=== PATIENT | female | born 1955 | race Caucasian/White ===

== ENCOUNTER 2016-07-24 06:08 | Observation (INO) | payer OTHER ==
[2016-07-24] MEDS ORDERED: Aspirin Low Dose CHEW TAB* 81 MG PO ONE (06:46)
--- NOTE | 2016-07-24 06:56 | ED ---
Mario Kaminski Aidan, scribed for Pia Esparzauel on 07/24/16 at 0653 . HPI Chest Pain - HPI Summary HPI Summary: 61 y/o female presents to the ED with a complaint of acute, constant, moderate mid thoracic and chest pain that began last night AT 2200. Currently, her pain is 3/10. Associated symptoms include gas. The last time she has had similar symptoms was roughly 6 years ago. She has not had a stress test. Pt denies any dizziness, SOB, numbness, or tingling. FHx of GI problems and cardiac disorders. - History of Current Complaint Chief Complaint: EDChestPainROMI Hx Obtained From: Patient Onset/Duration: Started Hours Ago, Still Present Time of Onset: 22:00 Timing: Constant Initial Severity: Moderate Current Severity: Mild Pain Intensity: 3 - PAIN WAS REDUCED FROM A 5 Pain Scale Used: 0-10 Numeric Chest Pain Location: Diffuse Chest Pain Radiates: No Character: Dull/Aching Aggravating Factor(s): Other: - unknown Alleviating Factor(s): Other: - unknown Associated Signs and Symptoms: Positive: Other: - gas - Allergy/Home Medications Allergies/Adverse Reactions: Allergies Allergy/AdvReac Type Severity Reaction Status Date / Time Codeine Allergy See Comment Verified 07/24/16 06:17 Sulfa Antibiotics Allergy See Comment Verified 07/24/16 06:17 PMH/Surg Hx/FS Hx/Imm Hx Endocrine/Hematology History: Reports: Hx Diabetes Cardiovascular History: Reports: Other Cardiovascular Problems/Disorders - heart murmer - Cancer History Cancer Type, Location and Year: CERVICAL CA Hx Chemotherapy: No Hx Radiation Therapy: No - Surgical History Surgery Procedure, Year, and Place: HYSTERECTOMY, TONSILLECTOMY, RIGHT OOPHORECTOMY Infectious Disease History: No Infectious Disease History: Denies: Traveled Outside the [place] in Last 30 Days - Family History Known Family History: Positive: Hypertension - Social History Occupation: Employed Full-time Lives: With Family Alcohol Use: Occasionally Substance Use Type: Reports: None Smoking Status (MU): Never Smoked Tobacco Review of Systems Constitutional: Negative Eyes: Negative ENT: Negative Positive: Chest Pain. Negative: Palpitations Respiratory: Negative Positive: Other - gas. Negative: Abdominal Pain, Vomiting, Diarrhea, Nausea Genitourinary: Negative Musculoskeletal: Negative Skin: Negative Neurological: Negative Psychological: Normal All Other Systems Reviewed And Are Negative: Yes Physical Exam Triage Information Reviewed: Yes Vital Signs On Initial Exam: Initial Vitals Temp Pulse Resp BP Pulse Ox 98.5 F 80 18 147/72 97 07/24/16 06:15 07/24/16 06:15 07/24/16 06:15 07/24/16 06:15 07/24/16 06:15 Vital Signs Reviewed: Yes Appearance: Positive: Well-Appearing, No Pain Distress Skin: Positive: Warm, Skin Color Reflects Adequate Perfusion, Dry Head/Face: Positive: Normal Head/Face Inspection Eyes: Positive: EOMI, ALEXANDRE ENT: Positive: Normal ENT inspection Neck: Positive: Supple, Nontender Respiratory/Lung Sounds: Positive: Clear to Auscultation, Breath Sounds Present Cardiovascular: Positive: Normal, RRR, Pulses are Symmetrical in both Upper and Lower Extremities Abdomen Description: Positive: Other: - RUQ tenderness Bowel Sounds: Positive: Present Musculoskeletal: Positive: Normal, Strength/ROM Intact Neurological: Positive: Normal, Sensory/Motor Intact, Alert, Oriented to Person Place, Time Psychiatric: Positive: Normal, Affect/Mood Appropriate AVPU Assessment: Alert Diagnostics - Vital Signs Vital Signs Temp Pulse Resp BP Pulse Ox 07/24/16 06:15 98.5 F 80 18 147/72 97 - Laboratory Lab Statement: Any lab studies that have been ordered have been reviewed, and results considered in the medical decision making process. - EKG EKG 0641 Cardiac Rate: NL - 73 BPM EKG Rhythm: Sinus Rhythm EKG Interpretation: SINUS RHYTHM, NONSPECIFIC CHANGES Chest Pain Course/Dx - Course Course Of Treatment: 61 y/o female presents to the ED with CP. She has tenderness to the RUQ. She will be signed out to Dr. Raman for further evaluation. - Diagnoses Provider Diagnoses: Chest pain, Abdominal pain Discharge - Discharge Plan Condition: Stable Disposition: OTHER Discharge Disposition Comment: Sign out to Dr. Raman. Referrals: Ana Jimenez MD [Primary Care Provider] - The documentation as recorded by the Mario domingo Aidan accurately reflects the service I personally performed and the decisions made by Vilma montoya Emmanuel.
[2016-07-24 07:01] LABS: Hematocrit 41 % (35-47); Hemoglobin 13.6 g/dl (12.0-16.0); Mean Corpuscular HGB Conc 33 g/dl (31-36); Mean Corpuscular Hemoglobin 28 pg (27-31); Mean Corpuscular Volume 86 fL (80-97); Mean Platelet Volume 8 um3 (7.4-10.4); Red Blood Count 4.82 10^6/ul (4.0-5.4); Red Cell Distribution Width 15 % (10.5-15); White Blood Count 8.1 10^3/ul (3.5-10.8)
[2016-07-24 07:17] LABS: Albumin 4.2 g/dL (3.2-5.2); BUN/Creatinine Ratio 18.6 (8-20); Calcium 9.5 mg/dL (8.6-10.3); EGFR African American 108.7 (>60); EGFR Non-African American 84.5 (>60); Magnesium 1.8 mg/dL (1.9-2.7); Potassium 4.1 mmol/L (3.5-5.0); Total Bilirubin 0.4 mg/dL (0.2-1.0); Total Protein 7.2 g/dL (6.4-8.9)
[2016-07-24] MEDS ORDERED: Morphine INJ* 4 MG/ML 1 ML SYRINGE IV ONE (07:26)
[2016-07-24] MEDS ORDERED: Famotidine IV* 10 MG/ML 2 ML (20 mg) IV SLOW PU ONE (07:26)
[2016-07-24] MEDS ORDERED: Ondansetron INJ* 2 MG/ML VIAL IV ONE (07:26)
--- NOTE | 2016-07-24 07:52 | RAD ---
HISTORY: Chest pain COMPARISONS: April 01, 2013 VIEWS:1: Single frontal portable view of the chest at 7:05 AM FINDINGS: LINES AND TUBES: None. CARDIOMEDIASTINAL SILHOUETTE: The cardiomediastinal silhouette is normal for portable technique. PLEURA: The costophrenic angles are sharp. No pleural abnormalities are noted. LUNG PARENCHYMA: The lungs are clear. ABDOMEN: The upper abdomen is clear. There is no subphrenic gas. BONES AND SOFT TISSUES: No bone or soft tissue abnormalities are noted. IMPRESSION: NO ACTIVE CARDIOPULMONARY DISEASE.
--- NOTE | 2016-07-24 09:07 | RAD ---
HISTORY: Cholelithiasis, cholecystitis COMPARISONS: None TECHNIQUE: Multiple transverse and longitudinal ultrasound images were obtained of the right upper quadrant of the abdomen using grayscale, color Doppler, and spectral Doppler imaging. FINDINGS: LIVER: The liver is diffusely echogenic and coarse in echotexture, with decreased acoustic transmission. The liver is otherwise normal in shape, size, and contour. There is normal monophasic hepatopedal flow of the portal vein on Doppler imaging. BILIARY TREE: There is no intrahepatic or extrahepatic biliary dilatation. The common duct measures 0.3 cm. GALLBLADDER: Multiple gallstones are noted. There is no gallbladder thickening or pericholecystic fluid. Positive sonographic Garcia sign is noted. PANCREAS: The head of the pancreas is unremarkable. The tail of the pancreas is not well visualized secondary to overlying bowel gas. RIGHT KIDNEY: The right kidney is normal in shape, size, contour, and echogenicity. There is no hydronephrosis or nephrolithiasis. The right kidney measures 10.8 x 5 x 6.2 cm. AORTA AND IVC: The aorta and IVC are unremarkable. FLUID: There are no pleural effusions. There is no free fluid within the hepatorenal recess. OTHER FINDINGS: None. IMPRESSION: 1. CHOLELITHIASIS, WITH A POSITIVE SONOGRAPHIC GARCIA SIGN. THE IMAGING FEATURES ARE INDETERMINATE FOR, BUT SUGGESTIVE OF, ACUTE CHOLECYSTITIS. 2. FATTY INFILTRATION OF THE LIVER
[2016-07-24] MEDS ORDERED: fentaNYL* 50 MCG/ML 2 ML VIAL (100 MCG VIAL) IV SLOW PU ONE ×2 (10:08→13:27)
[2016-07-24] MEDS ORDERED: Morphine INJ* 4 MG/ML 1 ML SYRINGE IV PRN (13:42)
[2016-07-24] MEDS ORDERED: Acetaminophen TAB* 325 MG PO PRN (13:42)
[2016-07-24] MEDS ORDERED: Ondansetron INJ* 2 MG/ML VIAL IV PRN (13:45)
--- NOTE | 2016-07-24 13:58 | PN ---
Progress Note - Progress Note Note: Brief Surgical Admission Note: (full H&P dictated) S: 61 yo female w/ onset of upper abd/lower chest pain last pm, persisting through the night, presented to the ED this a.m. At present pain level of 6-7/10. Some nausea; no vomiting. O: afeb; VSS Heart: reg Lungs: clear Abd: soft; mild to mod tenderness RUQ w/ equivocal Muphy's sign; remainder of abd soft and nontender. Labs: nl WBC, troponin, LFTs and lipase US: + for stones and sono-Garcia's; neg for wall thickening, pericholecystic fluid, or ductal dilatation A: acute biliary colic; poss cholecystits P: discussed options w/ patient; will admit for IV hydration and pain control; look towards OR 07/25 for cholecystectomy; discussed w/ Dr. Llanes.
[2016-07-24] MEDS ORDERED: Zosyn per Pharmacy* NOTE FOLLOW UP SCH (14:00)
[2016-07-24] MEDS: D5NS 0.9% 1000 ML BAG* 1,000 ML IV SCH (14:48)
--- NOTE | 2016-07-24 16:59 | HP ---
CC: Ana Jimenez MD ADMISSION HISTORY AND PHYSICAL: DATE OF ADMISSION: 07/24/16 CHIEF COMPLAINT: Abdominal pain. HISTORY OF PRESENT ILLNESS: This is a 61-year-old female who beginning at around 10 p.m. last brendai ng noted onset of lower chest and upper abdominal discomfort associated with gassiness and bloating feeling. She also had discomfort in the right back. She had no relief from Gas-X. Pain has been p ersistent to some level continuously, but with colicky episodes peaking at around 7/10. She has had some associated nausea, but no vomiting per se. She did have some foamy regurgitation at one point . She denies fever, but has felt some chills. She has not noted any dark urine. She has not had a ny change in bowel habits. She did have a somewhat similar, but milder episode in 2013 and was josue nded that she was found to have gallstones at that time. She has had other minor symptoms in [facility], but nothing as severe. There is no known family history of gallbladder disease. PAST MEDICAL HISTORY: Endometrial cancer for which she underwent da Sherrie laparoscopic hysterectomy in 2012 in [place]. This was followed by radiation (brachytherapy). The patient is obese. PAST SURGICAL HISTORY: Hysterectomy with including left salpingo-oophorectomy. She had undergone pr ior right oophorectomy for an ectopic many years ago. She also had an interval surgery to address infertility. She is status post tonsillectomy. No reported surgical or anesthesia complica tions. CURRENT MEDICATIONS: She takes no prescription medications. She does take multivitamin on occasion and also occasional vitamins D and/or E. She uses herbal teas on occasion. She takes no over-the- counter products or inhalers on a regular basis. ALLERGIES: 1. CODEINE (vivid dreams). (She has tolerated hydrocodone in the past). 2. SULFA (flu-like symptoms). FAMILY HISTORY: Negative for anesthesia problems, bleeding or clotting disorders. SOCIAL HISTORY: The patient lives alone. 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 She denies use of t obacco. She drinks between 0 and 4 drinks per week. She denies other recreational drug use. REVIEW OF SYSTEMS: General: No recent constitutional symptoms or acute illnesses other than descri bed in the HPI. Her weight has been relatively stable. HEENT: No problems reported. Cardiovascula r: No upper chest pain. No history of cardiovascular disease. No history of hypertension or heart murmur. Respiratory: No history of asthma, chronic cough, or shortness of breath. GI: As above p er HPI. Colonoscopy done within the past year or so with apparent benign polyps removed and recomme nded followup in 5 years. No significant interval history noted. : Occasional past UTIs. No re cent problems. MOMD TEACHER: She undergoes early mammogram and somewhat less frequent breast exams, but no problems reported. Her last MOMD TEACHER exam was 6 to 8 months ago, reportedly normal. Endocrine: No diab etes or thyroid dysfunction. PHYSICAL EXAMINATION GENERAL: Well-nourished obese female in no acute distress. She appears comfortable on the stretche r. VITAL SIGNS: Height 5 feet 5 inches, weight 205 pounds. Temperature 98.5, blood pressure 108/84, p ulse 72, respirations 16, room air saturation 97%. HEENT: Pupils equal, round, and reactive. EOMs are intact. No conjunctival pallor or scleral icte olamide. Oropharynx: Mucous membranes moist. Teeth in good repair. No intraoral lesions. NECK: No lymphadenopathy, thyromegaly, or masses. LUNGS: Clear to auscultation. No rales or wheezes. HEART: Regular rate and rhythm. No murmur noted. BREASTS: Not examined. ABDOMEN: Multiple well-healed surgical scars. Bowel sounds are present. Obese, soft. Mild-to-mod erate tenderness in the mid epigastric and right upper quadrant regions with an equivocal Garcia sig n. No palpable masses or organomegaly within limits of exam. The remainder of the abdomen is soft and nontender. GENITALIA AND RECTAL: Not done. BACK: No spinous process or CVA tenderness. EXTREMITIES: No edema. NEUROLOGIC: Grossly intact. SKIN: Warm and dry. No suspicious rashes or lesions. PERTINENT LABORATORY DATA: White blood cell count 8100 with a normal differential, hemoglobin 13.5 . Chemistries were remarkable for normal electrolytes, BUN and creatinine, normal liver function te sts and lipase. Her troponin was normal. Magnesium was slightly low at 1.8. Glucose was 138. Ultr asound showed fatty liver changes and multiple gallstones with a positive sonographic Garcia sign. There is no gallbladder wall thickening, pericholecystic fluid, or ductal dilatation. IMPRESSION: Biliary colic with acute cholecystitis. PLAN: Admission for IV hydration, pain control, and antibiotics with a view towards timely laparosc opic cholecystectomy (likely 07/25/16). The patient understands plan and would like to proceed as r ecommended. DYLAN BANEGAS [id number]/[facility] #: [id number]
[2016-07-25] MEDS: D5NS 0.9% 1000 ML BAG* 1,000 ML IV SCH (01:37)
[2016-07-25] MEDS ORDERED: celeCOXIB CAP* 200 MG PO ONE (11:09)
[2016-07-25] MEDS ORDERED: Sodium Citrate/Citric Acid* 15 ML UDC PO ONE (11:09)
[2016-07-25] MEDS ORDERED: Metoclopramide TAB* 10 MG PO ONE (11:09)
[2016-07-25] MEDS ORDERED: Famotidine TAB* 20 MG PO ONE (11:09)
[2016-07-25] MEDS ORDERED: Metoclopramide TAB* 10 MG ONE (11:29)
[2016-07-25] MEDS ORDERED: Famotidine TAB* 20 MG ONE (11:29)
[2016-07-25] MEDS ORDERED: Sodium Citrate/Citric Acid* 15 ML UDC ONE (11:29)
[2016-07-25] MEDS ORDERED: celeCOXIB CAP* 100 MG ONE (11:29)
[2016-07-25] MEDS ORDERED: Bupivacaine 0.5% W/EPI SDV* 30 ML VIAL ONE (13:19)
[2016-07-25] MEDS ORDERED: fentaNYL* 50 MCG/ML 2 ML VIAL (100 MCG VIAL) ONE (13:44)
[2016-07-25] MEDS ORDERED: Atracurium* 10 MG/ML 10 ML VIAL ONE (13:45)
[2016-07-25] MEDS ORDERED: Propofol* 10 MG/ML 20 ML BTL IV PUSH ONE (14:14)
[2016-07-25] MEDS ORDERED: Lidocaine 2% PF * 5 ML VIAL ONE (14:14)
[2016-07-25] MEDS ORDERED: Dexamethasone IV* 4 MG/ML 1 ML (4 MG) ONE (14:14)
[2016-07-25] MEDS ORDERED: DiMENhydriNATE IV* 50 MG/ML VIAL IV PUSH PRN (14:23)
[2016-07-25] MEDS ORDERED: fentaNYL* 50 MCG/ML 2 ML VIAL (100 MCG VIAL) IV PRN (14:23)
[2016-07-25] MEDS ORDERED: HYDROmorphone* 1 MG/ML 1 ML SYR IV PRN (15:32)
[2016-07-25] MEDS ORDERED: oxyCODONE/Acetamin 5/325 MG* TAB PO PRN (15:40)
--- NOTE | 2016-07-25 15:46 | PN ---
Progress Note - Progress Note Note: Brief Surgical Note: Pre-op: Acute cholecystitis Post-op: Same Procedure: Laparoscopic cholecystectomy Surgeon: Dr. Llanes Real Estate Coordinator: Jessica Hughes EPL: Minimal Fluids: LR 900 cc Drains: None Catheter: None Specimen: Gallbladder Findings: See dictated op note
--- NOTE | 2016-07-26 01:30 | OP ---
CC: Ana Jimenez MD * DATE OF OPERATION: 07/25/16 - ROOM #333 DATE OF : 51 SURGEON: Dr. Llanes. SANDAL PARTS ASSEMBLER: DYLAN Malone ANESTHESIOLOGIST: Nolan Cherry MD ANESTHESIA: General endotracheal. PRE-OP DIAGNOSIS: Acute cholecystitis. POST-OP DIAGNOSIS: Acute cholecystitis. OPERATIVE PROCEDURE: Laparoscopic cholecystectomy. ESTIMATED BLOOD LOSS: Minimal. IV FLUIDS: 900 mL of crystalloids. SPECIMEN: Gallbladder contents. DRAINS: None. COMPLICATIONS: None. COUNTS: The instrument, needle, and sponge counts were correct. DESCRIPTION OF PROCEDURE: The patient was brought to the operating room and placed on the table supine. Sequential compression devices were placed on both lower extremities. General anesthesia was administered. The abdomen was prepped and draped in the usual sterile fashion. She received appropriate intravenous antibiotics and time-out was performed. Local anesthetic was infiltrated into the skin and soft tissue prior to each incision. Entry to the abdomen was through a transumbilical vertical incision accommodating a 5-mm optical trocar. After accessing the peritoneal cavity, carbon- dioxide insufflated to a pressure of 15 mmHg. A 5 mm 0-degree laparoscope was introduced. The gallbladder appeared to be acutely inflamed. The 12-mm trocar was placed in the subxiphoid position and two 5-mm trocar was placed in the right upper quadrant. The gallbladder was grasped up to the fundus and retracted superiorly. There were adhesions of omental fat to the gallbladder and this was divided using combination of blunt dissection and electrocautery. As the gall-bladder was retracted superiorly, the gallbladder was entered with cautery dissection and endoscopic suction was used to decompress the gallbladder. The cholecystotomy site was grasped and retracted superiorly and the dissection proceeded towards the infundibulum dissecting this both medially and laterally. A cystic artery was identified, was bluntly dissected out, clipped, and divided. The cystic duct was identified , bluntly dissected out, clipped, and divided. Extruded gallstones were removed using a stone retrieval forceps. The gallbladder was then freed from attachments to the liver using the hook cautery staying in an avascular plane. Any extruded stones were removed as they were identified. Ultimately, once the gallbladder was freed, it was placed in an endoscopic retrieval bag and it was retrieved through the subxiphoid port site. The area of dissection was carefully inspected for hemostasis and stones. A few oozing areas on the liver bed were cauterized. Additional branch of the cystic artery identified within the fatty tissue anterior to the gallbladder was clipped. Copious lavage was performed with 3 L of warm saline until clear. The ports were then removed under direct visualization and carbon dioxide was released. Skin incisions were closed with 4-0 Monocryl in a subcuticular fashion. Steri-Strips were applied. The patient tolerated the procedure well and was extubated and transferred to the recovery room in stable condition. [id number]/[facility] #: [id number] MTDD
--- NOTE | 2016-07-26 08:39 | PN ---
Progress Note - Progress Note SOAP: Subjective: No pain. Tolerated diet. No N/V. Answered multiple questions about post-op care. Objective: Vital Signs Temp 98.2 F 07/26/16 07:19 Pulse 66 07/26/16 07:19 Resp 15 07/26/16 07:19 BP 113/59 07/26/16 07:19 Pulse Ox 95 07/26/16 07:19 Kfjy=701 NAD Abd: obese, incisions with steristrips intact. Soft and NT. Intake & Output 07/25/16 07/26/16 07/26/16 18:59 06:59 18:59 Intake Total 3297 3583 132 Output Total 1400 2200 Balance 1897 1383 132 Intake: IV Fluids 2695 1663 132 ABX - ZOSYN 103 103 D5W NS (0.9%) 795 LR 1900 1530 NS (0.9%) 30 29 IVPB 102 ABX - ZOSYN 102 Oral 500 1920 Output: Urine 1400 2200 Assessment: POD#1 s/p lap jolene for acute cholecystitis. Overall doing well, fever not unexpected given findings, but not septic and no need for further antibiotics. Plan: OK to discharge today. RTO 1 week. Instructions on diet/activity reviewed.
[2016-07-26 12:24] VITALS: BP 133/66
--- NOTE | 2016-07-27 10:51 | PN ---
I, Tin Carter, scribed for Krystian Raman MD on 07/24/16 at 0729 . Progress Note - Progress Note Note: Sign out from Dr. Esparza pending CXR and U/S imaging. Pt is a 61 y/o F initially presenting with intermittent CP onset last night. Associated sz: abd pain. 0740: Met with pt. Pt is still having pain, rates it as 7 out of 10. Pt is obese. Gross PE shows RUQ tenderness. Pt is lying comfortably watching TV. Diagnostics: CXR IMPRESSION, read by radiologist: No active cardiopulmonary disease. ABD U/S IMPRESSION, read by radiologist: 1. CHOLELITHIASIS, WITH A POSITIVE SONOGRAPHIC ARZOLA SIGN. THE IMAGING FEATURES ARE INDETERMINATE FOR, BUT SUGGESTIVE OF, ACUTE CHOLECYSTITIS. 2. FATTY INFILTRATION OF THE LIVER Course of Treatment: Pt given morphine, pepcid and Zofran in ED. Consults: 1145: Dr Enamorado's nurse, surgery: Dr. Enamorado and his PA are in surgery for the next 4-5 hours. 1315: Dr. Dillon, surgery: Saw pt in ED, will admit pt. Assessment & Plan: SO by Dr. Esparza to check on US of RUQ and for dispostion. US results show "1. CHOLELITHIASIS, WITH A POSITIVE SONOGRAPHIC ARZOLA SIGN. THE IMAGING FEATURES ARE INDETERMINATE FOR, BUT SUGGESTIVE OF, ACUTE CHOLECYSTITIS. 2. FATTY INFILTRATION OF THE LIVER." Pt appears to have acute cholecystitis, she has continued pain. Discussed PE findings with Dr. Dillon, PA from Dr. Enamorado's office. After his assessment, pt will be admitted under Dr. Enamorado for possible cholecystectomy. Pt was given 2 doses of Fentanyl for pain. Pt continues to be hemodynamically stable and A&Ox3. Dispo: Pt condition is stable. Admit to [facility]. The documentation as recorded by the roryibEmma avila SooYoung accurately reflects the service I personally performed and the decisions made by , Krystian Raman MD.
== END 2016-07-26 13:50 | disposition home or self-care (01) ==
LOC: ED 06:08 → SSU 13:38 → INTOOBSV 07-25 15:35 → OBSVTOIN 07-25 15:35
PROVIDERS: ADMIT Surgery; ATTEND Surgery
DX: K80.12 Calculus of gallbladder with acute and chronic cholecystitis without obstruction (principal); R07.9 Chest pain, unspecified; R10.11 Right upper quadrant pain; K76.0 Fatty (change of) liver, not elsewhere classified; R11.0 Nausea; Z85.42 Personal history of malignant neoplasm of other parts of uterus; Z88.2 Allergy status to sulfonamides; Z88.5 Allergy status to narcotic agent
CPT/HCPCS: 36415; 71010; 76705; 80053; 83690; 83735; 83880; 84484; 85025; 85610; 85730; 88304; 93005; 96365; 96366; 96375; 99283; A9270-GY; G0378; J1100; J2270; J2405; J2543; J2704; J3010

== ENCOUNTER 2016-09-18 14:54 | Emergency (ER) | payer OTHER ==
[2016-09-18 15:10] VITALS: BP 157/72
--- NOTE | 2016-09-18 16:39 | UC ---
Throat Pain/Nasal Zoran HPI - HPI Summary HPI Summary: ONSET OF SORE THROAT SINCE THIS MORNING. NO FEVER. NO CONGESTION. NO COUGH. NO RASH. NO ABDOMINAL PAIN. 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 - History of Current Complaint Chief Complaint: UCRespiratory Stated Complaint: SORE THROAt Time Seen by Provider: 09/18/16 14:58 Hx Obtained From: Patient Onset/Duration: Gradual Onset, Lasting Weeks Pain Intensity: 0 Pain Scale Used: 0-10 Numeric Cough: None Associated Signs & Symptoms: Positive: Hoarseness - Epiglottits Risk Factors Epiglottis Risk Factors: Negative - Allergies/Home Medications Allergies/Adverse Reactions: Allergies Allergy/AdvReac Type Severity Reaction Status Date / Time Codeine Allergy See Comment Verified 09/18/16 15:10 Sulfa Antibiotics Allergy See Comment Verified 09/18/16 15:10 PMH/Surg Hx/FS Hx/Imm Hx Previously Healthy: Yes - Surgical History Surgical History: Yes Surgery Procedure, Year, and Place: HYSTERECTOMY, TONSILLECTOMY, RIGHT OOPHORECTOMY. lap jolene - Family History Known Family History: Positive: Hypertension - Social History Occupation: Employed Full-time Lives: With Family Alcohol Use: Occasionally Substance Use Type: None Smoking Status (MU): Never Smoked Tobacco - Immunization History Most Recent Influenza Vaccination: none Most Recent Pneumonia Vaccination: never Review of Systems Constitutional: Negative Skin: Negative Eyes: Negative ENT: Sore Throat Respiratory: Negative Cardiovascular: Negative Gastrointestinal: Negative Genitourinary: Negative Motor: Negative Neurovascular: Negative Musculoskeletal: Negative Neurological: Negative Psychological: Negative All Other Systems Reviewed And Are Negative: Yes Physical Exam Triage Information Reviewed: Yes Appearance: Well-Appearing, No Pain Distress, Well-Nourished Vital Signs: Initial Vital Signs Temp 97.7 F 09/18/16 15:07 Pulse 95 09/18/16 15:07 Resp 20 09/18/16 15:07 BP 157/72 09/18/16 15:07 Pulse Ox 97 09/18/16 15:07 Vital Signs Reviewed: Yes Eye Exam: Normal ENT: Positive: Hearing grossly normal, Pharyngeal erythema, TMs normal. Negative: Tonsillar swelling, Tonsillar exudate Dental Exam: Normal Neck exam: Normal Neck: Positive: Supple, Nontender, No Lymphadenopathy Respiratory Exam: Normal Respiratory: Positive: Chest non-tender, Lungs clear, Normal breath sounds, No respiratory distress, No accessory muscle use Cardiovascular Exam: Normal Cardiovascular: Positive: RRR, No Murmur, Pulses Normal Abdominal Exam: Normal Abdomen Description: Positive: Nontender, No Organomegaly Musculoskeletal Exam: Normal Musculoskeletal: Positive: Strength Intact, ROM Intact Neurological Exam: Normal Psychological Exam: Normal Psychological: Positive: Normal Response To Family Skin Exam: Normal Throat Pain/Nasal Course/Dx - Differential Dx/Diagnosis Differential Diagnosis/HQI/PQRI: Pharyngitis, Tonsillitis, URI Provider Diagnoses: PHARYNGITIS Discharge - Discharge Plan Condition: Stable Disposition: HOME Patient Education Materials: Pharyngitis (ED) Referrals: Ana Jimenez MD [Primary Care Provider] -
== END 2016-09-18 15:51 | disposition home or self-care (01) ==
LOC: UCEAST 14:54
DX: J02.9 Acute pharyngitis, unspecified (principal)
CPT/HCPCS: 87651; 99211; G0463

== ENCOUNTER 2022-05-12 08:25 | Observation (INO) ==
[~2022-05-12 08:25] MED LIST: Buffered Lidocaine 1% SYRIN 1 ml INTRADERM ONE; Famotidine IV 10 MG/ML 2 ml VIAL (20 mg) IV ONE; Lactated Ringers 1000 ml BAG 1,000 ML IV SCH; Tranexamic Acid 1,000 MG in NS 0.9% 50 ML IV ONE
[2022-05-12] MEDS ORDERED: Phenylephrine IV 10 MG/ML 1 ml VIAL ONE ×2 (08:35→13:10)
[2022-05-12] MEDS ORDERED: fentaNYL 100 mcg/2 ml 50 MCG/ML VIAL ONE (08:35)
[2022-05-12] MEDS ORDERED: Lidocaine 2% PF 5 ML VIAL ONE (08:35)
[2022-05-12] MEDS ORDERED: Midazolam 2 mg/2 ml VIAL 1 mg/ml 2 ml VIAL (2 mg) ONE (08:35)
[2022-05-12] MEDS ORDERED: ceFAZolin 2 GM PREMIX 2 GM/50 ML BAG ONE (09:07)
[2022-05-12] MEDS ORDERED: Famotidine IV 10 MG/ML 2 ml VIAL (20 mg) ONE (09:27)
[2022-05-12] MEDS ORDERED: Propofol 10 MG/ML 20 ML BTL ONE ×4 (09:31→12:42)
[2022-05-12] MEDS ORDERED: ROPIVACAINE 5 MG/ML 30 ML BTL (0.5%) ONE (11:12)
[2022-05-12] MEDS ORDERED: Dexamethasone IV 4 MG/ML VIAL 1 ml VIAL ONE (11:21)
[2022-05-12] MEDS ORDERED: Ondansetron 4 mg VIAL 2 MG/ML 2 ml VIAL ONE (11:21)
[2022-05-12] MEDS ORDERED: Acetaminophen IV 1 GM/100ML 1,000 MG/100 ML BAG IV ONE (11:21)
[2022-05-12] MEDS ORDERED: Ondansetron 4 mg VIAL 2 MG/ML 2 ml VIAL IV PRN (11:42)
[2022-05-12] MEDS ORDERED: Magnesium Hydroxide LIQ 30 ML UDC PO PRN (11:42)
[2022-05-12] MEDS ORDERED: Morphine 2 MG/ML SYRINGE IV PRN (11:42)
[2022-05-12] MEDS ORDERED: Ondansetron ODT 4 mg TAB 4 MG TAB PO PRN (11:42)
[2022-05-12] MEDS ORDERED: Lactulose 30 ml UDC PO PRN (11:42)
[2022-05-12] MEDS ORDERED: Lactated Ringers 1000 ml BAG 1,000 ML IV SCH (12:00)
[2022-05-12] MEDS ORDERED: fentaNYL 100 mcg/2 ml 50 MCG/ML VIAL IV PRN (12:33)
[2022-05-12] MEDS ORDERED: HYDROmorphone 1 MG/1 ML SYRINGE IV PRN (12:33)
[2022-05-12] MEDS ORDERED: Naloxone 0.4 mg VIAL 0.4 mg/ml 1 ml VIAL IV PRN (12:33)
[2022-05-12] MEDS: ceFAZolin 1 GM ADVAN 1 GM in NS 0.9% 50 ML 50 ML IVPB SCH (19:49)
[2022-05-12] MEDS: Magnesium Hydroxide LIQ 30 ML UDC PO SCH (21:05)
[2022-05-13] MEDS: ceFAZolin 1 GM ADVAN 1 GM in NS 0.9% 50 ML 50 ML IVPB SCH ×2 (03:24→11:14)
[2022-05-13 06:08] LABS: Hematocrit 35 % (35-47); Hemoglobin 11.6 g/dL (12.0-16.0); Mean Platelet Volume 8.5 fL (7.4-10.4); Platelet Count 194 10^3/uL (150-450)
[2022-05-13 06:45] LABS: Calcium 9.1 mg/dL (8.6-10.3); Creatinine, Serum 0.69 mg/dL (0.51-0.95); Potassium 4.6 mmol/L (3.5-5.0); eGFR CKD-EPI 93.9 (>60)
[2022-05-13] MEDS: Magnesium Hydroxide LIQ 30 ML UDC PO SCH ×2 (08:23→20:40)
[2022-05-13] MEDS: Vitamin THERAPEUTIC TAB PO SCH (08:23)
[2022-05-14 08:15] LABS: Hematocrit 37 % (35-47); Hemoglobin 12.6 g/dL (12.0-16.0); Mean Platelet Volume 8.8 fL (7.4-10.4); Platelet Count 177 10^3/uL (150-450)
[2022-05-14] MEDS: Magnesium Hydroxide LIQ 30 ML UDC PO SCH (08:26)
[2022-05-14] MEDS: Vitamin THERAPEUTIC TAB PO SCH (08:34)
[2022-05-14 12:24] VITALS: BP 138/70
== END 2022-05-14 15:00 | disposition home or self-care (01) ==
LOC: OR 08:25 → SSU 08:25
PROVIDERS: ADMIT Orthopaedic Surgery Adult Reconstructive Orthopaedic Surgery; ATTEND Orthopaedic Surgery Adult Reconstructive Orthopaedic Surgery